=== PATIENT | male | born 1945 | race Hispanic/Latino ===

== ENCOUNTER → 2018-10-02 | Outpatient (CLI) | payer OTHER ==
[~2018-10-02] MED LIST: ALBUTEROL SULFATE 0.083% 2.5 MG/3 ML INH IH ONE
== END | disposition home or self-care (01) ==
LOC: RESP 09:57
PROVIDERS: ATTEND Orthopaedic Surgery
DX: J44.9 Chronic obstructive pulmonary disease, unspecified (principal); M47.815 Spondylosis without myelopathy or radiculopathy, thoracolumbar region
CPT/HCPCS: 71046; 94060; 94727; 94729